=== PATIENT | female | born 1990 ===

== ENCOUNTER 2018-01-09 16:32 | Emergency (ER) | payer OTHER ==
[2018-01-09 17:02] VITALS: O2SAT 98
[2018-01-09 17:35] LABS: HCG,QUALITATIVE URINE NEGATIVE (NEGATIVE)
[2018-01-09 17:41] LABS: SQUAMOUS EPITHIAL 25 /hpf (0-5); URINE BACTERIA OCC (<OCC); URINE BILIRUBIN NEGATIVE (NEGATIVE); URINE CLARITY Hazy (Clear); URINE COLOR Yellow (YELLOW); URINE GLUCOSE (UA) NORMAL (Normal); URINE LEUKOCYTE ESTERASE NEG Leu/uL (Negative); URINE PROTEIN NEGATIVE (NEGATIVE)
[2018-01-09 17:45] LABS: URINE BLOOD TRACE (NEGATIVE)
--- NOTE | 2018-01-09 17:50 | C.PDOC ---
History Of Present Illness 27 y/o female presents to the ED complaining of intermittent headaches for the last 2 days. Denies associated fever, chills, neck stiffness, dizziness, cough, congestion, or other complaints. States the headache comes and goes spontaneously. Currently patient denies having any pain. She has not tried any OTC medication at home. Time Seen by Provider: 01/09/18 17:09 Chief Complaint (Nursing): Headache History Per: Patient History/Exam Limitations: no limitations Onset/Duration Of Symptoms: Days Current Symptoms Are (Timing): Still Present Past Medical History Reviewed: Historical Data, Nursing Documentation, Vital Signs Vital Signs: Last Vital Signs Temp 98 F 01/09/18 18:23 Pulse 79 01/09/18 18:23 Resp 20 01/09/18 18:23 BP 116/81 01/09/18 18:23 Pulse Ox 98 01/09/18 18:41 Surgical History: No Surg Hx Family History: States: Unknown Family Hx - Social History Hx Tobacco Use: No Hx Alcohol Use: No Hx Substance Use: No - Immunization History Hx Tetanus Toxoid Vaccination: No Hx Influenza Vaccination: No Hx Pneumococcal Vaccination: No Review Of Systems Except As Marked, All Systems Reviewed And Found Negative. Constitutional: Negative for: Fever, Chills ENT: Negative for: Nose Congestion Respiratory: Negative for: Cough Musculoskeletal: Negative for: Neck Pain Neurological: Positive for: Headache. Negative for: Dizziness Physical Exam - Physical Exam Appears: Non-toxic, No Acute Distress Skin: Normal Color, Warm, Dry Head: Atraumatic, Normacephalic Eye(s): bilateral: Normal Inspection, EOMI Nose: Normal Oral Mucosa: Moist Neck: Normal ROM, No Midline Cervical Tenderness, No Paracervical Tenderness, Supple, No Other (rigidity) Chest: Symmetrical Cardiovascular: Rhythm Regular Respiratory: Normal Breath Sounds, No Accessory Muscle Use Extremity: Bilateral: Atraumatic, Normal Color And Temperature, Normal ROM Pulses: Left Radial: Normal, Right Radial: Normal Neurological/Psych: Oriented x3, Normal Speech, Normal Cranial Nerves (2-12 intact), Normal Motor, Normal Sensation, Other (No sensorineural deficits) Gait: Steady ED Course And Treatment O2 Sat by Pulse Oximetry: 98 (RA) Pulse Ox Interpretation: Normal Progress Note: UA and urine preg sent. Labs reviewed, and are unremarkable. Patient is stable for discharge home, provided with RX for Tylenol. Counseled patient regarding diagnosis and advised follow up with PMD. Disposition Counseled Patient/Family Regarding: Studies Performed, Diagnosis, Need For Followup - Disposition Disposition: HOME/ ROUTINE Disposition Time: 18:23 Condition: GOOD Additional Instructions: Follow up with your PMD and Neurologist if your headaches are persistent. Return to ED if feel worse. Prescriptions: Acetaminophen [Tylenol 325mg tab] 2 tab PO Q6 #50 tab Instructions: Headache, Adult Forms: [facility] ([place]), Work Excuse - POA Present On Arrival: None - Clinical Impression Clinical Impression: Headache - PA / NERVE SPECIALIST / Resident Statement MD/DO has reviewed & agrees with the documentation as recorded. - Scribe Statement The provider has reviewed the documentation as recorded by the Scribe (Jo Mosqueda) All medical record entries made by the Scribe were at my direction and personally dictated by me. I have reviewed the chart and agree that the record accurately reflects my personal performance of the history, physical exam, medical decision making, and the department course for this patient. I have also personally directed, reviewed, and agree with the discharge instructions and disposition.
[2018-01-09 18:25] VITALS: BP 116/81; PULSE 79; RESP 20; TEMP 98
== END 2018-01-09 18:29 | disposition home or self-care (01) ==
LOC: C.ER 16:32
DX: R51 Headache (principal)

== ENCOUNTER 2018-07-28 15:04 | Emergency (ER) | payer OTHER ==
[2018-07-28 15:08] VITALS: BMI 34.3
[2018-07-28 15:10] VITALS: BP 125/80; PULSE 80; RESP 18; TEMP 97.9; O2SAT 99
--- NOTE | 2018-07-28 16:15 | C.PDOC ---
History Of Present Illness 28 y/o female presents to the ED for evaluation of abscess to the left axilla, since 1 month ago. States the area had begun to drain over the past few weeks. Drainage described was white/yellow. Patient notes the area improved however for the past 2 weeks the swelling has returned and is painful again. She has tried prodding the area with no drainage expressed. No fevers or chills. Time Seen by Provider: 07/28/18 15:34 Chief Complaint (Nursing): Upper Extremity Problem/Injury History Per: Patient History/Exam Limitations: no limitations Onset/Duration Of Symptoms: Days Current Symptoms Are (Timing): Still Present Past Medical History Reviewed: Historical Data, Nursing Documentation, Vital Signs Vital Signs: Last Vital Signs Temp 97.9 F 07/28/18 15:07 Pulse 80 07/28/18 15:07 Resp 18 07/28/18 15:07 BP 125/80 07/28/18 15:07 Pulse Ox 99 07/28/18 15:07 - Medical History PMH: No Chronic Diseases Surgical History: Family History: States: Unknown Family Hx - Social History Hx Tobacco Use: No Hx Alcohol Use: No Hx Substance Use: No - Immunization History Hx Tetanus Toxoid Vaccination: No Hx Influenza Vaccination: No Hx Pneumococcal Vaccination: No Review Of Systems Except As Marked, All Systems Reviewed And Found Negative. Constitutional: Negative for: Fever, Chills Musculoskeletal: Negative for: Arm Pain Skin: Positive for: Other (abscess to left axilla) Neurological: Negative for: Weakness, Numbness Physical Exam - Physical Exam Appears: Well, Non-toxic, No Acute Distress Skin: Warm, Other (4 cm indurated swelling to the left axilla, no drainage, no increased warmth or erythema, no fluctuance) Neck: Normal ROM Chest: Symmetrical Respiratory: No Accessory Muscle Use, Other (normal inspiratory effort) Extremity: Normal ROM (of left upper extremity), Capillary Refill (< 2 sec), No Deformity Pulses: Left Radial: Normal, Right Radial: Normal Neurological/Psych: Oriented x3, Normal Speech Gait: Steady ED Course And Treatment O2 Sat by Pulse Oximetry: 99 (RA) Pulse Ox Interpretation: Normal Medical Decision Making Medical Decision Making: Impression: Abscess, not fluctuant Patient advised that area is not fluctuant at this time, and therefore I&D is not indicated. Instructed patient to apply warm compresses and take antibiotics as instructed. Patient will return in 3-4 days when fluctuant. Disposition Counseled Patient/Family Regarding: Diagnosis, Need For Followup, Rx Given - Disposition Disposition: HOME/ ROUTINE Disposition Time: 16:13 Condition: STABLE Prescriptions: Cephalexin [Keflex] 500 mg PO QID #40 capsule Ibuprofen [Motrin] 600 mg PO TID #15 tab Instructions: Skin Abscess Forms: General Discharge Instructions, [facility] ([place]), Work Excuse - POA Present On Arrival: None - Clinical Impression Clinical Impression: Abscess - Scribe Statement The provider has reviewed the documentation as recorded by the Caesar Mosqueda Provider Attestation: All medical record entries made by the Caesar were at my direction and personally dictated by me. I have reviewed the chart and agree that the record accurately reflects my personal performance of the history, physical exam, medical decision making, and the department course for this patient. I have also personally directed, reviewed, and agree with the discharge instructions and disposition.
== END 2018-07-28 16:20 | disposition home or self-care (01) ==
LOC: C.ER 15:04
DX: L02.412 Cutaneous abscess of left axilla (principal)

== ENCOUNTER 2018-12-02 01:02 | Emergency (ER) | payer OTHER ==
[2018-12-02 01:04] VITALS: BMI 34.3
[2018-12-02] MEDS ORDERED: MethylPREDNISolone 40 mg Vial IM STA (01:32)
--- NOTE | 2018-12-02 01:40 | C.PDOC ---
History Of Present Illness Patient presents to the ED with complaint of an itchy facial rash to bilateral eyes (L>R). States she returned back from a trip from [place] a few days ago and upon returning home (3 days ago) she noticed the rash. Patient states she does not wear makeup and denies any known contact with allergen. She took 50mg of benadryl prior to coming with some relief. Patient denies fevers, chills, lip or tongue swelling. No difficulty breathing, speaking or swallowing. No chest pain or SOB. No other complaints at this time. Time Seen by Provider: 12/02/18 01:15 Chief Complaint (Nursing): Abnormal Skin Integrity History Per: Patient History/Exam Limitations: no limitations Past Medical History Reviewed: Historical Data, Nursing Documentation Vital Signs: Last Vital Signs Temp 98 F 12/02/18 01:10 Pulse 92 H 12/02/18 01:10 Resp 20 12/02/18 01:10 BP 116/76 12/02/18 01:10 Pulse Ox 98 12/02/18 01:10 Primary Care Provider: FAMILY PROVIDER,NO - Medical History PMH: No Chronic Diseases Surgical History: Family History: States: Unknown Family Hx - Social History Hx Tobacco Use: No Hx Alcohol Use: No Hx Substance Use: No - Immunization History Hx Tetanus Toxoid Vaccination: No Hx Influenza Vaccination: No Hx Pneumococcal Vaccination: No Review Of Systems Except As Marked, All Systems Reviewed And Found Negative. Constitutional: Negative for: Sweats, Weakness Eyes: Negative for: Vision Change, Conjunctivae Inflammation ENT: Negative for: Ear Pain Cardiovascular: Negative for: Palpitations, Light Headedness Respiratory: Negative for: Pleuritic Pain, Wheezing Genitourinary: Negative for: Dysuria Physical Exam - Physical Exam Appears: Well, Non-toxic, Toxic Skin: Normal Color, Warm, Dry Head: Atraumatic, Normacephalic, Other (Urticarial rash noted to skin surrounding the left and right eye (L>R). No periorbital edema or erythema. No tenderness.) Eye(s): bilateral: Normal Inspection, PERRL, EOMI Oral Mucosa: Moist Tongue: Normal Appearing, No Swelling Lips: Normal Appearing, No Swelling Throat: Normal, No Erythema, No Exudate, No Drooling Neck: Normal, Normal ROM Lymphatic: No Adenopathy Chest: Symmetrical Cardiovascular: Rhythm Regular Respiratory: Normal Breath Sounds Gastrointestinal/Abdominal: Normal Exam, Soft, No Tenderness Back: No Decreased ROM Extremity: Normal ROM Extremity: Bilateral: Atraumatic Neurological/Psych: Oriented x3, Normal Speech, Normal Cognition Gait: Steady ED Course And Treatment O2 Sat by Pulse Oximetry: 98 Medical Decision Making Medical Decision Making: IM solu-medrol given. WIll treat with prednisone taper. Advised to continue benadryl and will also add pepcid. Will return with any worsening rash, fevers, chills, eye swelling/discharge, lip or tongue welling or any difficulty breahing, SOB, tongue swelling, lip swelling, throat discomfort. Disposition Counseled Patient/Family Regarding: Diagnosis, Need For Followup, Rx Given - Disposition Referrals: FAMILY PROVIDER,PEPPER [Family Provider] - Disposition: HOME/ ROUTINE Disposition Time: 01:34 Condition: GOOD Additional Instructions: Follow-up with PMD and head of quality. Return if symptoms worsen or persist. Prescriptions: DiphenhydrAMINE [Benadryl] 50 mg PO Q6 #24 cap Famotidine [Pepcid] 20 mg PO DAILY #7 tab predniSONE [Prednisone] 10 mg PO DAILY #15 tab Instructions: Skin Rash Forms: General Discharge Instructions, [facility] (Urdu) Print Language: MONEGASQUE - Clinical Impression Clinical Impression: Rash in adult - PA / CONFECTIONERY MAKER / Resident Statement MD/DO has reviewed & agrees with the documentation as recorded.
[2018-12-02 02:15] VITALS: BP 120/71; PULSE 75; RESP 18; TEMP 97.9
[2018-12-02 03:03] VITALS: O2SAT 98
== END 2018-12-02 02:15 | disposition home or self-care (01) ==
LOC: C.ER 01:02
DX: R21 Rash and other nonspecific skin eruption (principal)
CPT/HCPCS: 96372; 99283; J2920